=== PATIENT | male | born 1995 | race Caucasian/White ===

== ENCOUNTER → 2024-01-16 | Outpatient (CLI) | payer BC, SELFPAY ==
--- NOTE | 2024-01-16 16:20 | RAD_ITS ---
STUDY: X-RAY - RIGHT FOOT CLINICAL: Male, 28 years old. OSTEOSARCOMA OF RIGHT FEMUR TECHNIQUE: 3 view(s) of the foot. COMPARISON: None. FINDINGS: Normal talus, calcaneus, and tarsal bones. Normal visualized subtalar, talonavicular, calcaneocuboid, tarsal and tarsometatarsal articulations. Normal metatarsi. Normal metatarsophalangeal joint of the great toe. Normal tibial and fibular sesamoid bones. Normal interphalangeal joint of the great toe. Normal phalanges of the great toe. Normal second through fifth metatarsophalangeal joints. Normal interphalangeal joints and phalanges of the lesser toes. The soft tissue structures are unremarkable. RAD/Foot min 3 Views IMPRESSION: Normal x-ray examination of the foot. Electronically Signed: Tesfaye Casper MD at 18:11 [facility] ,
--- NOTE | 2024-01-16 16:20 | RAD_ITS ---
STUDY: X-RAY - RIGHT FEMUR REASON FOR STUDY: Male, 28 years old. OSTEOSARCOMA OF RIGHT FEMUR with resection. TECHNIQUE: 5 view(s) of the femur. COMPARISON: None. FINDINGS: There has been resection of the distal femur and proximal tibia with fusion using multiple screws and sideplate fixation device. The proximal portion of the fibula as been resected. Multiple surgical clips are seen at the operative site. Focal bony outgrowth is seen along the medial aspect of the distal portion of the femur. Soft tissue swelling. RAD/Femur Min 2 Views IMPRESSION: Status post resection of the distal femur and proximal tibia with fusion using screws and side plate fixation device. Prior resection of the proximal fibula with postoperative changes and soft tissue changes. Electronically Signed: Horace Silva MD at 9:01 EST ,
--- OUTSIDE RECORDS SUMMARY | 2024-01-16 18:44 | XMS RPT_ITS | CCD ---
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 acute distress, alert, oriented x 3, appropriate mood and affect, looks stated age, well nourished HENT: normal atraumatic, no neck masses Respiratory: Regular with no shortness of breath Musculoskeletal: Exam of the right foot/ankle finds stable ROM. There is palpable prominence on the dorsum of his foot consistent with a chronic bursa from where is prothesis rubs. There is no redness or skin breakdown. Lymph: No abnormally large lymph nodes. Neurological: alert, oriented, normal speech, no focal findings or movement disorder noted Skin: warm and dry Radiographic imaging studies (I have personally reviewed all radiographic images reported below) : EXAM: XR FEMUR RIGHT 5 VIEWS, XR FOOT RIGHT 2 VIEWS , 04/08/2022 08:13 AM (accession [id number]), 04/08/2022 08:12 AM (accession [id number]) COMPARISON: Compared to prior study dated April 09, 2021. CLINICAL INDICATIONS: Status post resection of osteosarcoma. 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 Patient status post rotationplasty surgery (femur and tibia are fused); FINDINGS: 5 images obtained of the right femur. Soft Tissue: There is no obvious soft tissue swelling. No soft tissue mass is seen. Numerous surgical clips in the soft tissues adjacent to the right femur and right tibia osteoplasty site. Bone: Postsurgical changes related to distal femur resection and rotationplasty with stable alignment and bony fusion. Hardware appears intact without significant periprosthetic lucency. There are stable bony hypertrophic changes along the medial surgical margin. No new bony matrix formation identified. No evidence of disease recurrence. No osseous lysis or periostitis. Joint: The hip joint is grossly intact. 2 images obtained of the right foot. Soft Tissue: There is no significant soft tissue swelling. Bone: No acute osseous abnormality is identified. Joint: No evidence of dislocation. The tarsal-metatarsal joints appear grossly intact. IMPRESSION IMPRESSION: 1. Postsurgical changes related to right lower extremity rotationplasty with intact hardware, stable alignment and bony fusion. No acute osseous abnormality. 2. Unremarkable right foot radiographs. Impression: 26 y.o. male doing well. X-rays show stable post operative changes with hardware in place. No new bone lesions seen. Plan: Return in 1 year(s) for physical exam and review of plain films of the right femur and foot. Patient knows to call if he has any problems before his return appointment. documented in this encounter [facility] 12-14-2017 History of Presen t illness Narrative Mr. Jameson is a 27-year-old male seen by self-referral for evaluation of hemorrhoids. he reports that over 5 years ago, he had osteosarcoma for which he underwent amputation and chemotherapy. During chemotherapy, he suffered with severe constipation. He would have significant perianal pain with bowel movements. That was sharp pain. He also had small amounts of blood on tissue paper with wiping. He has since completed chemotherapy and his constipation has resolved. He has daily bowel movements. He is not on any stool softeners, fiber supplements, or laxatives. Last month, he had an episode where he had a very firm bowel movement. He reports that tissue bubbled out . the tissue was very painful to touch and it hurts to walk. He used [id number] hemorrhoid cream and a few days later his pain began to subside. He currently denies any perianal pain. He is not having any blood per rectum. His bowel movements are back to being soft and regular. He has never had a colonoscopy. He has no family history of colon or rectal cancer. At present, he is asymptomatic, but he kept this appointment at the encouragement of his . [facility] Work Phone: [facility] Osteosarcoma of right femur Amputation of lower limb Lower limb amputation, unspecified level [facility] Diagnosis Osteosarcoma of right femur Amputation of lower limb Lower limb amputation, unspecified level [facility] Diagnosis Osteosarcoma of right femur- Primary Amputation of lower limb Lower limb amputation, unspecified level [facility] Diagnosis Osteosarcoma of right femur- Primary [facility] Diagnosis Osteosarcoma of right femur [facility] Diagnosis Osteosarcoma of right femur Pain Generalized pain [facility] Diagnosis Osteosarcoma of right femur Pain Generalized pain Swelling Edema [facility] Diagnosis Osteosarcoma of right femur- Primary Amputation of right lower extremity [facility] Diagnosis Osteosarcoma of right femur- Primary [facility] Diagnosis Osteosarcoma of right femur documented in this encounter [facility] Assessments Diagnosis Mass of right thigh - Primar y Diagnosis Mass of right thigh - Primar y Diagnosis Osteosarcoma of right femur Diagnosis Osteosarcoma of right femur Reason for Referral Status Reason Specialty Diagnoses / Procedures Referre d By Contact Referred To Contact Closed Diagnoses Osteosarcoma of right femur Procedures CT ABDOMEN/PELVIS WITH CONTRAST CHG CT SCAN,ABDOMENT AND PELVIS,W CONTRAST Pan Delarosa MD [address] [place], [place] [phone] Status Reason Specialty Diagnoses / Procedures Referre d By Contact Referred To Contact Closed Diagnoses Osteosarcoma of right femur Procedures CT CHEST WITH CONTRAST IN CAT SCAN OF CHEST CONTRAST Pan Delarosa MD [address] [place], [place] [phone] Specialty Diagnoses / Procedures Referred By Contac t Referred To Contact Diagnoses Osteosarcoma of right femur Procedures CT CHEST WITHOUT CONTRAST CHG DIAGNOSTIC COMPUTED TOMOGRAPHY THORAX W/O CNTRST Bri Alvarez, CAR SERVICER-[employer]ER [employer] [address] [place], [place] [phone] Referral ID Status Reason Start Date Expiration Date V isits Requested Visits Authorized [id number] New Request 04/08/2022 05/03/2023 1 1 Specialty Diagnoses / Procedures Referred By Contac t Referred To Contact Diagnoses Osteosarcoma of right femur Procedures QUESTIONNAIRE SERIES Bri Alvarez, CAR SERVICER-SHAKER OUT [address] [place], [place] [phone] Referral ID Status Reason Start Date Expiration Date V isits Requested Visits Authorized [id number] New Request 04/07/2022 05/02/2023 1 1 Specialty Diagnoses / Procedures Referred By Contac t Referred To Contact Diagnoses Osteosarcoma of right femur Amputation of lower limb Procedures XR FEMUR RIGHT Arya Tang PA-C [address] [place] [phone] Referral ID Status Reason Start Date Expiration Date V isits Requested Visits Authorized [id number] New Request 04/09/2021 05/04/2022 1 1 Specialty Diagnoses / Procedures Referred By Contac t Referred To Contact Diagnoses Osteosarcoma of right femur Amputation of lower limb Procedures XR FOOT RIGHT Arya Tang PA-C [address] [place] [address] Referral ID Status Reason Start Date Expiration Date V isits Requested Visits Authorized [id number] New Request 04/08/2022 05/03/2023 1 1 Referral ID Status Reason Start Date Expiration Date V isits Requested Visits Authorized [id number] New Request 04/08/2022 05/03/2023 1 1 Specialty Diagnoses / Procedures Referred By Contac t Referred To Contact Diagnoses Osteosarcoma of right femur Procedures CT CHEST WITHOUT CONTRAST CHG DIAGNOSTIC COMPUTED TOMOGRAPHY THORAX W/O CNTRST Pan Delarosa MD [address] [place] [address] Referral ID Status Reason Start Date Expiration Date V isits Requested Visits Authorized [id number] New Request 10/07/2022 11/01/2023 1 1 Referral ID Status Reason Start Date Expiration Date Visits Re quested Visits Authorized [id number] Closed 04/08/2022 05/03/2023 1 1 Specialty Diagnoses / Procedures Referred By Contac t Referred To Contact Diagnoses Osteosarcoma of right femur Pain Procedures XR FEMUR RIGHT Americo Yoon MD [address] [place] [address] Referral ID Status Reason Start Date Expiration Date V isits Requested Visits Authorized [id number] New Request 01/10/2023 02/04/2024 1 1 Referral ID Status Reason Start Date Expiration Date V isits Requested Visits Authorized [id number] New Request 10/06/2023 10/30/2024 1 1 Referral ID Status Reason Start Date Expiration Date Visits Re quested Visits Authorized [id number] Closed 10/07/2022 11/01/2023 1 1 Summary Purpose Family History No Family History Records FoundNo Family History Records FoundNo Family History Records FoundNo Family History Records FoundNo Family History Records FoundNo Family History Records FoundNo Family History Records Found Advance Directives No Advanced Directives Records FoundLatest Code Status on File Code Status Date Activated Date Inactivated Comments Full Code 09/28/2018 11:58 AM Full Code 09/21/2018 3:43 PM 09/28/2018 11:58 AM Full Code 08/31/2018 5:48 PM 09/21/2018 3:43 PM Full Code 08/03/2018 4:39 PM 08/31/2018 5:48 PM Full Code 2018 2:14 PM 08/03/2018 4:39 PM Latest Code Status on File Code Status Date Activated Date Inactivated Comments Full Code 09/28/2018 11:58 AM Code Status History Code Status Date Activated Date Inactivated Comments Full Code 09/21/2018 3:43 PM 09/28/2018 11:58 AM Full Code 08/31/2018 5:48 PM 09/21/2018 3:43 PM Full Code 08/03/2018 4:39 PM 08/31/2018 5:48 PM Full Code 2018 2:14 PM 08/03/2018 4:39 PM Latest Code Status on File Code Status Date Activated Date Inactivated Comments Full Code 09/28/2018 11:58 AM Code Status History Code Status Date Activated Date Inactivated Comments Full Code 09/21/2018 3:43 PM 09/28/2018 11:58 AM Full Code 08/31/2018 5:48 PM 09/21/2018 3:43 PM Full Code 08/03/2018 4:39 PM 08/31/2018 5:48 PM Full Code 2018 2:14 PM 08/03/2018 4:39 PM Chief Complaint Blood per rectum, perianal pain Additional Source Comments Reason for Visit (unrecogniz ed section and content) Status Reason Specialty Diagnoses / Procedures Referre d By Contact Referred To Contact Closed Diagnoses Osteosarcoma of right femur Procedures CT CHEST WITH CONTRAST IN CAT SCAN OF CHEST CONTRAST Pan Delarosa MD [address] [place] [address] Reason Comments Follow-up Specialty Diagnoses / Procedures Referred By Margret t Referred To Contact Diagnoses Osteosarcoma of right femur Amputation of lower limb Procedures XR FOOT RIGHT 2 VIEWS XR FOOT RIGHT Arya Tang PA-C [address] [place] [address] Referral ID Status Reason Start Date Expiration Date V isits Requested Visits Authorized [id number] New Request 04/09/2021 05/04/2022 1 1 Specialty Diagnoses / Procedures Referred By Contac t Referred To Contact Diagnoses Osteosarcoma of right femur Amputation of lower limb Procedures XR FEMUR RIGHT Arya Tang PA-C [address] [place] [address] Referral ID Status Reason Start Date Expiration Date V isits Requested Visits Authorized [id number] New Request 04/09/2021 05/04/2022 1 1 Reason Comments Follow-up Specialty Diagnoses / Procedures Referred By Contac t Referred To Contact Diagnoses Osteosarcoma of right femur Procedures CT CHEST WITHOUT CONTRAST CHG DIAGNOSTIC COMPUTED TOMOGRAPHY THORAX W/O CNTRST Bri Alvarez, CAR SERVICER-HUMBERTO [address] [place] [address] Referral ID Status Reason Start Date Expiration Date Visits Re quested Visits Authorized [id number] Closed 04/08/2022 05/03/2023 1 1 Specialty Diagnoses / Procedures Referred By Contac t Referred To Contact Diagnoses Osteosarcoma of right femur Pain Procedures XR FEMUR RIGHT Americo Yoon MD [address] [place] [address] Referral ID Status Reason Start Date Expiration Date V isits Requested Visits Authorized [id number] New Request 01/10/2023 02/04/2024 1 1 Specialty Diagnoses / Procedures Referred By Contac t Referred To Contact Diagnoses Osteosarcoma of right femur Pain Swelling Procedures XR FOOT RIGHT 3 VIEWS XR FOOT RIGHT Americo Yoon MD [address] [place] [address] Referral ID Status Reason Start Date Expiration Date V isits Requested Visits Authorized [id number] New Request 01/10/2023 02/04/2024 1 1 Reason Comments Follow-up Xray review Specialty Diagnoses / Procedures Referred By Contac t Referred To Contact Diagnoses Osteosarcoma of right femur Procedures CT CHEST WITHOUT CONTRAST CHG DIAGNOSTIC COMPUTED TOMOGRAPHY THORAX W/O CNTRST Pan Delarosa MD [address] [place] [address] Referral ID Status Reason Start Date Expiration Date Visits Re quested Visits Authorized [id number] Closed 10/07/2022 11/01/2023 1 1 (unrecognized sect ion and content) No Status Records FoundNo Status Records FoundNo Status Records FoundNo Status Records FoundNo Status Records FoundNo Status Records FoundNo Status Records Found INFORMATION SOURCE (unrecogn ized section and content) DATE CREATED AUTHOR AUTHOR'S ORGANIZ ATION 04/23/2021 [facility] DATE CREATED AUTHOR AUTHOR'S ORGANIZ ATION 05/25/2022 [facility] DATE CREATED AUTHOR AUTHOR'S ORGANIZ ATION 12/14/2022 [facility] DATE CREATED AUTHOR AUTHOR'S ORGANIZ ATION 12/14/2022 [employer] DATE CREATED AUTHOR AUTHOR'S ORGANIZ ATION 01/01/2023 [facility] DATE CREATED AUTHOR AUTHOR'S ORGANIZ ATION 10/08/2023 [facility] <item><item><item> Privacy Markings (unrecogniz ed section and content) Section Author: Galina May PROHIBITION ON REDISCLOSURE OF CONFIDENTIAL INFORMATION This notice accompanies a disclosure of information concerning a client made to you with the consent of such client. Section Author: Galina May PROHIBITION ON REDISCLOSURE OF CONFIDENTIAL INFORMATION This notice accompanies a disclosure of information concerning a client made to you with the consent of such client. Section Author: Galina May PROHIBITION ON REDISCLOSURE OF CONFIDENTIAL INFORMATION This notice accompanies a disclosure of information concerning a client made to you with the consent of such client. Care Teams (unrecognized sec tion and content) Digital Sales Manager Relationship Specialty Start Date End Date Austin Su DO [address] [facility] [address] [place], [place] [phone] PCP - General Family Medicine 05/21/21 Melissa Rush, JULIO CÉSAR Registered Nurse Medical Oncology 03/15/18 Danielle Peng, RN Registered Nurse Medical Oncology 05/15/18 Martina Ayala, RN Registered Nurse 09/07/18 Pan Delarosa MD [address] [place] [phone] Oncologist Medical Oncology 03/15/18 Digital Sales Manager Relationship Specialty Start Date End Date Austin Su DO [address] [facility] [address] [place], [place] [phone] PCP - General Family Medicine 05/21/21 Melissa Rush RN Registered Nurse Medical Oncology 03/15/18 Danielle Peng, JULIO CÉSAR Registered Nurse Medical Oncology 05/15/18 Martina Ayala, RN Registered Nurse 09/07/18 Pan Delarosa MD [address] [place] [address] Oncologist Medical Oncology 03/15/18 Digital Sales Manager Relationship Specialty Start Date End Date Austin Su DO [address] [place] [address] PCP - General Family Medicine 05/21/21 Melissa Rush, RN Registered Nurse Medical Oncology 03/15/18 Danielle Peng, RN Registered Nurse Medical Oncology 05/15/18 Martina Ayala, RN Registered Nurse 09/07/18 Pan Delarosa MD [address] [place] [address] Oncologist Medical Oncology 03/15/18 Digital Sales Manager Relationship Specialty Start Date End Date Austin Su DO [address] [place] [address] PCP - General Family Medicine 05/21/21 Melissa Rush, RN Registered Nurse Medical Oncology 03/15/18 Danielle Peng, RN Registered Nurse Medical Oncology 05/15/18 Martina Ayala, RN Registered Nurse 09/07/18 Pan Delarosa MD [address] [place] [address] Oncologist Medical Oncology 03/15/18 Digital Sales Manager Relationship Specialty Start Date End Date Austin Su DO [address] [facility] [address] [place] [address] PCP - General Family Medicine 05/21/21 Melissa Rush, RN Registered Nurse Medical Oncology 03/15/18 Danielle Peng, RN Registered Nurse Medical Oncology 05/15/18 Martina Ayala, RN Registered Nurse 09/07/18 Pan Delarosa MD [address] [place] [address] Oncologist Medical Oncology 03/15/18 Digital Sales Manager Relationship Specialty Start Date End Date Austin Su DO [address] [facility] [address] [place], [place] [phone] PCP - General Family Medicine 05/21/21 Melissa Rush, RN Registered Nurse Medical Oncology 03/15/18 Danielle Peng, RN Registered Nurse Medical Oncology 05/15/18 Martina Ayala, RN Registered Nurse 09/07/18 Pan Delarosa MD [address] [place] [address] Oncologist Medical Oncology 03/15/18 Digital Sales Manager Relationship Specialty Start Date End Date Austin Su DO [address] [facility] [address] [place], [place] [phone] PCP - General Family Medicine 05/21/21 Melissa Rush, RN Registered Nurse Medical Oncology 03/15/18 Danielle Peng, RN Registered Nurse Medical Oncology 05/15/18 Martina Ayala, RN Registered Nurse 09/07/18 Pan Delarosa MD [address] [place] [address] Oncologist Medical Oncology 03/15/18 Digital Sales Manager Relationship Specialty Start Date End Date Austin Su DO [facility] [address] [facility] [address] [place] [address] PCP - General Family Medicine 05/21/21 Melissa Rush, RN Registered Nurse Medical Oncology 03/15/18 Danielle Peng, RN Registered Nurse Medical Oncology 05/15/18 Martina Ayala, RN Registered Nurse 09/07/18 Pan Delarosa MD [address] [place] [address] Oncologist Medical Oncology 03/15/18 FOR RECORDS PERTAINING TO PATIENTS WHO ARE OR HAVE BEEN ENROLLED IN A CHEMICAL DEPENDENCY/SUBSTANCEABUSE PROGRAM, SOME INFORMATION MAY BE OMITTED. This clinical summary was aggregated from multiple sources. Caution should be exercised in using it in the provision of clinical care. This summary normalizes information from multiple sources, and as a consequence, information in this document may materially change the coding, format and clinical context of patient data. In addition, data may be omitted in some cases. CLINICAL DECISIONS SHOULD BE BASED ON THE PRIMARY CLINICAL RECORDS. [facility] [employer] [facility]. provides no warranty or guarantee of the accuracy or completeness of information in this document.
== END | disposition home or self-care (01) ==
LOC: RAD 16:03
PROVIDERS: Referring Provider Orthopaedic Surgery; Visit Provider Orthopaedic Surgery
DX: C40.21 Malignant neoplasm of long bones of right lower limb (principal)
CPT/HCPCS: 73552; 73630

== ENCOUNTER 2024-08-16 09:58 | Emergency (ER) | payer BC, SELFPAY ==
[2024-08-16 09:59] VITALS: PULSE 96; RESP 16; TEMP 36.8; O2SAT 99; BMI 33.9
[2024-08-16 10:02] VITALS: BP 124/72; PULSE 96; RESP 15; TEMP 36.8; O2SAT 100
--- NOTE | 2024-08-16 10:37 | EDS_ITS ---
HPI History of Present Illness Chief Complaint: Fever PFSH PFSH Home Medications ?Medication ?Instructions ?Recorded ?Last Taken ?Type albuterol sulfate 90 mcg/actuation 2 puff inhalation Q4H PRN PRN 02/02/16 Unknown History aerosol inhaler (Ventolin HFA) Shortness Of Breath cephalexin 500 mg capsule 500 mg PO TID #30 CAPSULES 08/16/24 Unknown Rx sulfamethoxazole 800 1 tab PO BID #20 tabs 08/16/24 Unknown Rx mg-trimethoprim 160 mg tablet (Bactrim DS) Allergy/AdvReac Type Severity Reaction Status Date / Time No Known Allergies Allergy Verified 02/02/16 03:20 Social History Smoking Status: Never smoker EXAM Physical Exam Const Vital Signs: 08/16/24 09:59 08/16/24 10:02 08/16/24 10:04 Temperature 98.2 F 98.2 F Temperature Source Oral Oral Pulse Rate 96 96 Respiratory Rate 16 15 Respiratory Effort Normal Non-Labored Respiratory Pattern Normal Blood Pressure 124/72 H Blood Pressure Mean 89 Pulse Ox 99 100 Oxygen Delivery Method Room Air Room Air 08/16/24 12:00 Temperature Temperature Source Pulse Rate 81 Respiratory Rate 12 Respiratory Effort Respiratory Pattern Blood Pressure 112/81 H Blood Pressure Mean 91 Pulse Ox 100 Oxygen Delivery Method Room Air MDM MDM MDM Narrative Medical decision making narrative: HISTORY OF PRESENT ILLNESS: 29-year-old male presents with concern for fever. Notes has been antibiotics for a right lower extremity infection. He notes he last took Motrin last night at 10 PM approximately. Patient denies active cancer, being bedridden for greater than 3 days, denies unilateral leg swelling, denies any varicose veins, denies any calf tenderness, denies tenderness along deep venous system. Denies major surgery within 12 weeks, recent paralysis, previous DVT. REVIEW OF SYSTEMS: Pertinent positives: Fever, leg infection Pertinent negatives: Vomiting PHYSICAL EXAM: Nursing triage notes reviewed, Vital signs reviewed Constitutional: please see mdm Extremities: No edema Neuro: Intact sensation L1-S1 dermatomal distributions. Intact 5/5 strength in hip flexion (T12-L3). Knee extension (L2-L4). Ankle dorsiflexion (L4-L5). Ankle plantar flexion (S1). Great toe extension (L5). 2+ patellar and Achilles DTRs. Skin: Erythema noted to the dorsal surface of the foot, no obvious crepitus bullae fluctuance induration or signs of abscess. MEDICAL DECISION MAKING: Chief Complaint: Fever, concern for leg infection External records reviewed: No recent ED visits noted in the chart MDM Narrative: Patient was hemodynamically stable, afebrile and nontoxic-appearing. Exam without crepitus bullae or signs of necrotizing fasciitis. I considered the following differential diagnosis: Cellulitis, necrotizing fasciitis, DVT ALL IMAGES (IF OBTAINED) HAVE BEEN PERSONALLY REVIEWED AND INTERPRETED BY MYSELF. DVT study negative The Patient's history and clinical exam consistent with likely cellulitis. The patient showed no signs of sepsis or distributive infection is appropriate outpatient antibiotics. He had no immunocompromising state (diabetes, liver failure, kidney failure), had a normal GI tract in which case he should tolerate oral antibiotics just fine there is no evidence that IV antibiotics are superior to oral antibiotics in this clinical context. The patient and/or family, caregivers express understanding. The patient and/or family, caregivers agrees with the plan. Shared decision making: I will have a discussion with the patient and or visitors regarding risk/benefits of further testing or admission. They will be made aware of of the risk/benefits inherent in this decision they will be given the opportunity to voice understanding. Total critical care time today provided was at least 0 minutes. This excludes separately billable procedures. Critical care time (if documented) is secondary to the patient having high probability of clinically significant/life threatening deterioration in the patient's condition which required my urgent intervention. Impression: 1. Right lower extremity cellulitis 2. Fever Dispo: Discharge home This note was generated with [employer] dictation software. It may contain incorrect words, spelling, and punctuation that were not noted in review of the chart prior to signing. Discharge Plan Triage Chief Complaint: Fever ED Provider: Manny Fritz Dx/Rx/DC Orders Clinical Impression: Cellulitis Instructions: Cellulitis Dc Prescriptions: New cephalexin 500 mg capsule 500 mg PO TID Qty: 30 0RF sulfamethoxazole-trimethoprim [Bactrim DS] 800-160 mg tablet 1 tab PO BID Qty: 20 0RF No Action albuterol sulfate [Ventolin HFA] 1 INHALER inhaler 2 puff inhalation Q4H PRN PRN (Reason: Shortness Of Breath) Primary Care Provider: [facility] Referrals: [facility] [Other] Activity Restrictions/Additional Instructions: Thank you for trusting us with your care today! Please take Tylenol (2 pills, 650 mg), ibuprofen (2 pills, 400 mg) every 6 hours as needed for pain and fever control. Please discontinue taking doxycycline. Please begin taking both Keflex and Bactrim as these cover a broader range of microbes. Please return to the emergency department if your symptoms change or worsen. Specifically restart vomiting, cannot tolerate antibiotics by mouth or develop severe redness swelling increasing pain fevers chills sweats or other signs of distributed systemic infection. Please follow with your primary care physician for further outpatient evaluation and management. Print Language: Serbian Disposition Disposition: Home, Self Care
--- NOTE | 2024-08-16 11:02 | VDLE_ITS ---
Reason For Study: RLE SWELLING RIGHT GSV is normal. CFV is compressible, spontaneous, phasic, competent and demonstrates normal augmentation. FV is compressible, spontaneous, phasic, competent and demonstrates normal augmentation. POP V is compressible, spontaneous, phasic, competent and demonstrates normal augmentation. T/P Trunk is compressible. PTV is compressible. RT PerV is compressible. Procedure Exam performed portable in ED. The study was technically difficult. A preliminary report was called and/or faxed to ED. IMAGE #16 is RT PERV. VL/Venous Duplex US, Unilateral Interpretation Summary Deep veins of the right lower extremity are patent and compressible segmentally . There is no evidence of right lower extremity deep vein thrombosis. The right great sap[place] us vein appears patent and compressible segmentally. Ordering Physician: Manny Fritz Referring Physician: OTD Performed By: Aspen Roper, ALICIA, RVT
[2024-08-16] MEDS: Cephalexin 250 MG Capsule 500 MG PO (11:08)
[2024-08-16] MEDS: Smz/Tmp Ds Tablet 1 TABLET PO (11:08)
[2024-08-16 12:00] VITALS: BP 112/81; PULSE 81; RESP 12; O2SAT 100
[2024-08-16 12:56] VITALS: BP 118/81; PULSE 97; RESP 13; TEMP 37.1; O2SAT 100
== END 2024-08-16 12:58 | disposition home or self-care (01) ==
PROVIDERS: Emergency Provider Emergency Medicine; Visit Provider Emergency Medicine
DX: L03.115 Cellulitis of right lower limb (principal); R50.9 Fever, unspecified
CPT/HCPCS: 93971; 99284

== ENCOUNTER → 2025-02-04 | Outpatient (CLI) | payer BC, SELFPAY ==
--- NOTE | 2025-02-04 16:02 | RAD_ITS ---
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 COMPARISON: No relevant prior studies available. FINDINGS: BONES/JOINTS: Fixation sideplate and screws to the femur. Anatomic position. Intact hardware. Resection of the proximal fibula. No acute fracture. No dislocation. SOFT TISSUES: Unremarkable. RAD/Femur Min 2 Views IMPRESSION: Postoperative changes as above. Reading Location: [facility]
--- NOTE | 2025-02-04 16:02 | RAD_ITS ---
EXAM: XR Right Foot, 2 Views CLINICAL INDICATION: HX SARCOMA, MALIGNANT NEOPLASM OF LONG BONES OF RIGHT LOWER LIMB, TECHNIQUE: Frontal and lateral views of the right foot. COMPARISON: No relevant prior studies available. FINDINGS: BONES/JOINTS: See below. SOFT TISSUES: Soft tissue swelling without acute fracture. No radiopaque foreign body. RAD/Foot 2 Views IMPRESSION: 1. Soft tissue swelling without acute fracture. 2. If symptoms persist, further evaluation with CT is recommended. Reading Location: [facility]
== END | disposition home or self-care (01) ==
LOC: RAD 15:41
PROVIDERS: Referring Provider Orthopaedic Surgery; Visit Provider Orthopaedic Surgery
DX: C40.21 Malignant neoplasm of long bones of right lower limb (principal)
CPT/HCPCS: 73552; 73620